=== PATIENT | female | born 1970 | race Caucasian/White ===

== ENCOUNTER 2024-01-16 12:55 | Emergency (ER) | payer OTHER ==
[~2024-01-16] VITALS: Ht 157.5 cm; Wt 104.5 kg
[2024-01-16] MEDS ORDERED: HCTZ 25MG25 MG (13:37)
[2024-01-16] MEDS ORDERED: PRILOSEC 20MG20 MG (13:38)
[2024-01-16] MEDS ORDERED: COZAAR25 M1 PO (13:41)
[2024-01-16 15:58] VITALS: BP 148/87
== END 2024-01-16 15:58 | disposition home or self-care (01) ==
LOC: ED 12:55
DX: S80.01XA Contusion of right knee, initial encounter (principal); W18.30XA Fall on same level, unspecified, initial encounter